=== PATIENT | female | born 1955 | race Caucasian/White ===

== ENCOUNTER 2021-01-27 14:46 | Emergency (ER) | payer OTHER, SELFPAY ==
[2021-01-27 15:04] VITALS: BP 145/88; PULSE 73; RESP 18; TEMP 37.2; O2SAT 99; BMI 23.3
--- NOTE | 2021-01-27 15:09 | DI.RAD.S_ITS ---
PROCEDURE: XR SHOULDER RT MIN 2V INDICATIONS: Fall with injury TECHNIQUE: 3 views of the shoulder were acquired. COMPARISON: None. FINDINGS: Bones: No acute fractures or dislocations. Humeral shaft deformity from remote healed fracture. No suspicious bony lesions. Visualized ribs appear intact. Soft tissues: No suspicious soft tissue calcifications. IMPRESSION: No evidence acute bony abnormality of the right shoulder. If clinical suspicion and/or symptoms persist, further assessment with repeat plain films, or advanced imaging (e.g., CT, MRI, or bone scan) may be helpful for further assessment. Dictated by: Johny Rodriguez M.D. on 01/27/2021 at 14:59 Approved by: Johny Rodriguez M.D. on 01/27/2021 at 15:00
--- NOTE | 2021-01-27 16:11 | ED_ITS ---
HPI - General Adult General Chief complaint: Extremity Injury, Upper Stated complaint: Right Shoulder Pain Time Seen by Provider: 01/27/21 15:39 Source: patient Mode of arrival: Ambulatory Limitations: no limitations History of Present Illness HPI narrative: Patient is a 66-year-old female who stated that last evening fell while talking on the phone landing on her right shoulder. She states since that time she has had quite a bit of discomfort with moving her right arm. She has broken her humerus in the past and felt similar to that. She also feels that her right shoulder is more swollen compared to the left. Tried some Advil this morning without any improvement the symptoms. The pain does radiate down to her elbow and up into her neck. No other injuries reported from the event Related Data Previous Rx's Medication Instructions Recorded tramadol [Ultram] 50 mg PO Q6H PRN #14 tab 01/27/21 Review of Systems Constitutional Constitutional: Denies fever(s) and Denies headache(s) ENT Ears, Nose, Mouth, and Throat: Denies headache(s) Musculoskeletal Comments: right shoulder pain Integumentary/Breasts Skin/Breast: Reports system reviewed and no additional complaints, except as documented Neurologic Neurologic: Reports system reviewed and no additional complaints, except as documented and Denies headache(s) Hematologic/Lymphatic On Anticoagulants: No Allergic/Immunologic Allergic/Immunologic: Reports system reviewed and no additional complaints, except as documented Patient History Medical History Right humeral fracture Social History Smoking Status: Current some day smoker Smoking Status: Current some day smoker tobacco type: cigars Substance Use Type: does not use Exam Initial Vital Signs Initial Vital Signs: Vital Signs Temperature 98.9 F 01/27/21 15:04 Pulse Rate 73 01/27/21 15:04 Respiratory Rate 18 01/27/21 15:04 Blood Pressure 145/88 H 01/27/21 15:04 Pulse Oximetry 99 01/27/21 15:04 Const General: cooperative and comfortable Limitations: mental status not altered HENDE Head: normal to inspection and normocephalic Cardio Pulses: radial pulses present on the right Skin Lesions: no lesions Rashes: no rashes Neuro General: patient alert and patient awake Sensory Exam: no sensory deficits noted Extrem Other: patient does have tenderness to palpation over the AC joint. No tenderness over the medial clavicle. No tenderness over the scapula. Her right biceps appears to be intact. No tenderness over the biceps tendon palpation. Psych Appearance: grossly normal and well kempt Course Orders Ordered: ED Orders 01/27/21 15:09 XR shoulder RT min 2V Stat Vital Signs Vital signs: Vital Signs - 8 hr 01/27/21 15:04 01/27/21 16:27 Temperature 98.9 F Pulse Rate 73 68 Respiratory Rate 18 18 Blood Pressure 145/88 H 148/91 H Pulse Oximetry 99 100 Medical Decision Making Imaging Data Extremity x-ray #1: Radiologist's Impression: [address] [id number] ReportSigned Patient: Aparna Candelaria#: [id number]: 3Acct:[id number]/Sex: 66 / FDate of Service: 01/27/21Loc: EDAccession Number: [id number] Procedure: XR shoulder RT min 2V Ordering Provider: Blanca Chirinos D.O. PROCEDURE: XR SHOULDER RT MIN 2V INDICATIONS: Fall with injury TECHNIQUE: 3 views of the shoulder were acquired. COMPARISON: None. FINDINGS: Bones: No acute fractures or dislocations. Humeral shaft deformity from remote healed fracture. No suspicious bony lesions. Visualized ribs appear intact. Soft tissues: No suspicious soft tissue calcifications. IMPRESSION: No evidence acute bony abnormality of the right shoulder. If clinical suspicion and/or symptoms persist, further assessment with repeat plain films, or advanced imaging (e.g., CT, MRI, or bone scan) may be helpful for further assessment. Dictated by: Johny Rodriguez M.D. on 01/27/2021 at 14:59 Approved by: Johny Rodriguez M.D. on 01/27/2021 at 15:00 [facility] Narrative Medical decision making narrative: no fractures or dislocations noted on the x-ray. The old humeral fracture appears to be healed. Patient is neurovascularly intact. She is tender over the AC joint and the suspect that she has sustained a shoulder separation. She is neurovascularly intact. Feel we can hold on further workup for now. we did discuss symptom control. Lab patient follow-up with primary doctor. She expressed understanding and agreement. Discharge Plan Departure Patient Disposition: Home Clinical Impression: shoulder Instructions: AC Joint Separation Activity Restrictions/Additional Instructions: there does not appear to be any fractures or dislocation on the x-ray. The old fracture of your humerus appears to be healing well. Recommend that you continue with the Tylenol/ ibuprofen like we discussed. Contact your primary provider for follow-up. Return to the emergency department for any new or worsening symptoms Prescriptions: New tramadol [Ultram] 50 mg tablet 50 mg PO Q6H PRN (Reason: pain) Qty: 14 RF: 0 Referrals: Deanne Reddy DO [Primary Care Provider] -
[2021-01-27 16:27] VITALS: BP 148/91; PULSE 68; RESP 18; O2SAT 100
== END 2021-01-27 16:28 | disposition home or self-care (01) ==
PROVIDERS: Emergency Provider Emergency Medicine; PCP Family Medicine
DX: S43.006A Unspecified dislocation of unspecified shoulder joint, initial encounter (principal); W19.XXXA Unspecified fall, initial encounter
CPT/HCPCS: 73030; 99283